=== PATIENT | female | born 1955 ===

== ENCOUNTER 2018-04-25 08:23 | Outpatient (CLI) | payer OTHER | END 2018-04-25 08:25 | disposition home or self-care (01) | LOC: SONOGRAMA 08:23 | DX: E04.8 Other specified nontoxic goiter (principal) ==

== ENCOUNTER 2021-07-17 09:14 | Outpatient (CLI) | payer OTHER | END 2021-07-17 09:20 | disposition home or self-care (01) | LOC: SONOGRAMA 09:14 | PROVIDERS: ATTEND Pathology Anatomic Pathology & Clinical Pathology | DX: E03.9 Hypothyroidism, unspecified (principal); E04.2 Nontoxic multinodular goiter ==